=== PATIENT | male | born 1995 ===

== ENCOUNTER 2020-08-03 14:30 | Emergency (ER) | payer SELFPAY ==
[2020-08-03 23:19] LABS: SARS-CoV-2 MS2 Positive; SARS-CoV-2 N Gene Negative; SARS-CoV-2 S Gene Negative; SARS-CoV-2 by NAA Not Detected (NotDetected); SARS-CoV-2 orf1ab Negative
== END 2020-08-03 15:10 | disposition home or self-care (01) ==
LOC: ERS 14:30
DX: R05 Cough (principal); R09.89 Other specified symptoms and signs involving the circulatory and respiratory systems; Z20.828 Contact with and (suspected) exposure to other viral communicable diseases
CPT/HCPCS: 87635; 99283; U0003